=== PATIENT | female | born 1975 | race Caucasian/White ===

== ENCOUNTER → 2016-11-19 | Outpatient (CLI) | payer BC, OTHER ==
[2016-11-19 13:00] LABS: BLOOD UREA NITROGEN 13 mg/dl (7-18); CALCIUM 8.7 mg/dl (8.5-10.1); CARBON DIOXIDE 25 mmol/L (21-32); CHLORIDE 109 mmol/L (98-107); CHOLESTEROL 162 mg/dl (0-200); CREATININE 0.72 mg/dl (0.60-1.20); GLUCOSE 90 mg/dl (70-99); POTASSIUM 3.9 mmol/L (3.5-5.1); SODIUM 142 mmol/L (136-145)
[2016-11-19 13:03] LABS: CHOLESTEROL/HDL RATIO 3.6; HDL CHOLESTEROL 45 mg/dl; LDL CHOLESTEROL CALCULATED 95 mg/dl; TRIGLYCERIDES 110 mg/dl (0-150); VERY LOW DENSITY LIPOPROT CALC 22 mg/dl
== END | disposition home or self-care (01) ==
LOC: C.LABPBG 08:53
PROVIDERS: ATTEND Physician Assistant
DX: Z00.00 Encounter for general adult medical examination without abnormal findings (principal); Z13.220 Encounter for screening for lipoid disorders

== ENCOUNTER → 2016-11-19 | Outpatient (CLI) | payer OTHER ==
--- NOTE | 2016-11-19 12:11 | DIAGNOSTIC IMAGING REPORT ---
THORACOLUMBAR SPINE 2 VIEWS CLINICAL HISTORY: M54.9 Back pain, [id number] COMPARISON STUDY: None. FINDINGS: Moderate S-shaped scoliosis of the thoracolumbar spine. A 5 mm calcification overlying the left kidney suggestive of a nonobstructing stone. There is a convex curvature to the right within the thoracic spine and a convex curvature to the left within the lumbar spine. Paraspinal soft tissues are unremarkable. Alignment is intact. No fractures identified. 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 Mild degenerative disc disease within the mid thoracic spine likely a result of the scoliosis. IMPRESSION: 1. No fractures within the thoracic or lumbar spine. 2. Moderate S-shaped scoliosis. 3. Mild degenerative disc disease within the mid thoracic spine. 4. Suspect left-sided nephrolithiasis. Electronically signed by: Shant Kapoor M.D. 11/19/2016 12:08 PM Dictated Date/Time: 11/19/2016 12:06 PM
--- NOTE | 2016-11-19 12:16 | DIAGNOSTIC IMAGING REPORT ---
RIBS BILATERAL WITH PA CHEST CLINICAL HISTORY: Back and rib pain. COMPARISON STUDY: Chest x-ray dated 10/12/2013 FINDINGS: There is a moderate thoracolumbar S-shaped scoliosis. There are deformities of the left sixth and seventh ribs, likely old. No destructive rib lesions are visualized on conventional radiographic imaging. There is no pneumothorax. There is no focal pulmonary consolidation. IMPRESSION: 1. Scoliosis 2. No pneumothorax 3. Subtle deformities of the left sixth and seventh ribs, likely old Electronically signed by: Joseph Dhillon M.D. 11/19/2016 12:14 PM Dictated Date/Time: 11/19/2016 12:12 PM
== END | disposition home or self-care (01) ==
LOC: C.RAD 11:30
PROVIDERS: ATTEND Physician Assistant
DX: M54.9 Dorsalgia, unspecified (principal)

== ENCOUNTER → 2016-11-20 | Outpatient (CLI) | payer OTHER ==
[2016-11-20 17:39] LABS: BASO % 0.6 %; BASO ABS # 0.04 K/uL (0-0.2); COMPLETE YES; EOS % 4.9 %; HEMATOCRIT 40.8 % (37-47); IG% 0.1 %; LYMPH % 27.6 %; LYMPH ABS # 1.87 K/uL (1.2-3.4); MEAN CELL VOLUME 91.5 fL (80-100); MEAN CORPUSCULAR HEMOGLOBIN 30.3 pg (25-34); MEAN CORPUSCULAR HGB CONC 33.1 g/dl (32-36); MEAN PLATELET VOLUME 10.8 fL (7.4-10.4); MONO % 7.1 %; NEUT % 59.7 %; PLATELET COUNT 333 K/uL (130-400); RED BLOOD COUNT 4.46 M/uL (4.2-5.4); WHITE BLOOD COUNT 6.77 K/uL (4.8-10.8)
[2016-11-20 17:45] LABS: URINE APPEARANCE CLEAR (CLEAR); URINE BILIRUBIN NEG (NEG); URINE COLOR YELLOW; URINE NITRITE NEG (NEG); URINE PH 6.5 (4.5-7.5); URINE SPECIFIC GRAVITY 1.004 (1.000-1.030); UROBILINOGEN NEG (NEG)
[2016-11-20 17:47] LABS: MANUAL MICROSCOPIC REQUIRED? NO; REVIEW REQ? NO
== END | disposition home or self-care (01) ==
LOC: C.LABPBG 12:37
PROVIDERS: ATTEND Physician Assistant
DX: M54.9 Dorsalgia, unspecified (principal)

== ENCOUNTER → 2016-11-26 | Outpatient (CLI) | payer OTHER ==
[~2016-11-26] MED LIST: OPTIRAY 320 IV PRN
--- NOTE | 2016-11-26 12:07 | DIAGNOSTIC IMAGING REPORT ---
CT KIDNEY (ABDOMEN) COMBO CT DOSE: 392.25 mGy.cm CLINICAL HISTORY: Left kidney pain TECHNIQUE: Unenhanced images were obtained through the upper abdomen. Patient was then scanned in a dynamic helical fashion during intravenous administration of 119 cc Optiray 320. COMPARISON STUDY: 05/11/2014 FINDINGS: The visualized portions of the lung bases are unremarkable. There is mild hepatic steatosis. No focal hepatic masses are visualized. The portal vein appears patent. The gallbladder appears normal. No splenic masses are visualized. No pancreatic masses are visualized. No adrenal masses are visualized. There is no evidence of abdominal aortic aneurysm. There is a 4 mm mid to upper pole left renal calculus. There is a 3 mm lower pole right renal calculus. There is symmetric bilateral renal enhancement. There is no hydronephrosis. There is a 4 mm upper pole left renal cyst. Imaging of the pelvis was not ordered, and therefore this study cannot be utilized to exclude distal ureteral calculi. IMPRESSION: 1. Bilateral nephrolithiasis 2. No evidence of hydronephrosis 3. 4 mm upper pole left renal cyst Electronically signed by: Joseph Dhillon M.D. 11/26/2016 12:05 PM Dictated Date/Time: 11/26/2016 12:01 PM
== END | disposition home or self-care (01) ==
LOC: C.CTS 11:34
PROVIDERS: ATTEND Physician Assistant
DX: M54.9 Dorsalgia, unspecified (principal)

== ENCOUNTER → 2016-12-03 | Outpatient (CLI) | payer OTHER ==
--- NOTE | 2016-12-03 11:18 | DIAGNOSTIC IMAGING REPORT ---
MRI CERVICAL WITHOUT CONTRAST CLINICAL HISTORY: Neck pain and headaches. History of disc herniation. TECHNIQUE: Sagittal and axial T1, T2 and STIR images were obtained. COMPARISON STUDY: No previous studies for comparison. There are no suspicious areas of marrow replacement. 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 level. There is a possible congenital bony anomaly at the C2-3 level. C2-3: There is no evidence of disc bulge or focal herniation. There is no spinal or foraminal stenosis. C3-4: There is a minor circumferential disc bulge. There is no spinal stenosis. There is minor right-sided foraminal narrowing C4-5: There is a mild circumferential disc bulge. There is no spinal stenosis. There is minor right-sided foraminal narrowing. C5-6 :There is a mild circumferential disc bulge. There is no spinal stenosis. There is mild bilateral foraminal narrowing C6-7: There is no evidence of disc bulge or focal herniation. There is no evidence of spinal or foraminal stenosis. C7-T1: There is no evidence of disc bulge or focal herniation. There is no evidence of spinal or foraminal stenosis. IMPRESSION: 1. 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 Mild multilevel spondylitic changes with mild multilevel foraminal narrowing. No significant spinal stenosis 3. 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 Electronically signed by: Joseph Dhillon M.D. 12/03/2016 11:17 AM Dictated Date/Time: 12/03/2016 10:57 AM
== END | disposition home or self-care (01) ==
LOC: C.MRIBC 09:44
PROVIDERS: ATTEND Orthopaedic Surgery Orthopaedic Surgery of the Spine
DX: M50.221 Other cervical disc displacement at C4-C5 level (principal); M50.222 Other cervical disc displacement at C5-C6 level; M54.2 Cervicalgia